=== PATIENT | male | born 1985 | race African-American/Black ===

== ENCOUNTER 2017-07-15 12:47 | Emergency (ER) | payer SELFPAY ==
[2017-07-15 13:06] VITALS: BP 116/65
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
[2017-07-15] MEDS ORDERED: Sodium Chloride 0.9% 10 ML Syringe FLUSH PRN (13:36)
[2017-07-15] MEDS ORDERED: Iopamidol 612 MG/ML 100 ML Bottle IVPUSH ONE (13:36)
--- NOTE | 2017-07-15 14:15 | CT ---
CT chest Technique: Multiple axial sections were obtained from above the lung apices inferiorly through the lung bases. Intravenous contrast was utilized. Findings: Mediastinum and hilar regions show no adenopathy or mass. No pericardial thickening is identified. Small portion of the visualized upper abdominal structures are within normal limits. Small subpleural bleb is noted within the right upper lung. Small nodule identified within the right middle lobe near the major fissure which is most likely due to small granuloma measuring about 3 mm. Second small nodule is noted within the right middle lobe likely due to an additional granuloma measuring 2.6 mm. No pulmonary contusion is seen. Bone window settings shows no discrete rib fracture. Slight deformity noted within the inferior sternum at the sternoxiphoid junction which appears to be old and likely represents an old injury or developmental change. No acute sternal abnormality is seen. Impression: 1. Slight deformity at the sternoxiphoid junction which is felt to be normal variant or due to old injury. No acute sternal abnormality is seen. 2. 2 small granulomas within the right middle lobe are identified. 3. Small subpleural bleb is noted within the right upper lung. 4. No acute abnormality is identified on CT study of the chest. Diagnostic code #2
[2017-07-15] MEDS ORDERED: Acetaminophen/oxyCODONE 325-5 MG Tab PO ONE (15:05)
== END 2017-07-15 15:30 | disposition home or self-care (01) ==
LOC: JD.ED 12:47
DX: R07.89 Other chest pain (principal); F17.210 Nicotine dependence, cigarettes, uncomplicated; V83.5XXA Driver of special industrial vehicle injured in nontraffic accident, initial encounter
CPT/HCPCS: 71260; 99284; A9270; J7050; Q9967; 99283